=== PATIENT | male | born 1955 | race Caucasian/White ===

== ENCOUNTER → 2020-07-12 14:57 | Outpatient (CLI) | payer MEDICARE, SELFPAY ==
[2020-07-12] MEDS: COVID-19 VACC, Ad26(JANSSEN)/PF 0.5 ML IM (15:13)
== END ==
PROVIDERS: PCP Family Medicine; Visit Provider Internal Medicine
DX: Z23 Encounter for immunization (principal)
CPT/HCPCS: 0031A; 91303

== ENCOUNTER → 2020-10-13 08:43 | Outpatient (CLI) | payer MEDICARE, SELFPAY | PROVIDERS: PCP Family Medicine; Visit Provider Physician Assistant | DX: R10.9 Unspecified abdominal pain (principal) | CPT/HCPCS: 87086 ==

== ENCOUNTER → 2020-10-19 16:17 | Outpatient (CLI) | payer MEDICARE, SELFPAY ==
[2020-10-19 18:07] LABS: Basophils Absolute Auto 100 /uL (0-100); Eosinophils Absolute Auto 200 /uL (0-450); Eosinophils Percent Auto 2.4 % (2-4); Hematocrit 43.7 % (41-53); Lymphocytes Absolute Auto 2900 /uL (1100-4500); Lymphocytes Percent Auto 30.5 % (25-40); Mean Corpuscular HGB Conc 34.3 % (30-36); Mean Corpuscular Hemoglobin 31.9 PG (26-34); Mean Corpuscular Volume 92.9 fL (80-100); Monocytes Absolute Auto 900 /uL (0-900); Monocytes Percent Auto 9.2 % (3-14); Neutrophils Absolute Auto 5400 /uL (1500-7000); Neutrophils Percent Auto 56.9 % (50-75); Red Blood Cell Count 4.71 X10^6/uL (4.5-5.9); Red Cell Distribution Width 13.2 % (11.6-14.8); White Blood Cell Count 9.4 X10^3/uL (4.5-11.0)
[2020-10-19 18:11] LABS: Alanine Aminotransferase 38 IU/L (<50); Albumin 4.7 g/dL (3.5-5.0); Albumin Globulin Ratio 1.5 (1.0-2.8); Alkaline Phosphatase 65 U/L (38-126); Aspartate Aminotransferase 48 IU/L (17-59); BUN Creatinine Ratio 24.3 (6-22); Bilirubin Total 0.7 mg/dL (0.2-1.3); Blood Urea Nitrogen 26 mg/dL (9-20); Calcium 9.8 mg/dL (8.4-10.2); Carbon Dioxide 27 mmol/L (22-32); Chloride 102 mmol/L (98-107); Estimated Glomerular Filt Rate > 60.0 mL/min (>60); Globulin 3.2 g/dL (1.7-4.1); Glucose 84 mg/dL (80-110); HEMOLYSIS < 15 (0-50); Lipase 365 U/L (23-300); Potassium 4.6 mmol/L (3.4-5.1); Sodium 137 mmol/L (137-145); Total Protein 7.9 g/dL (6.3-8.2)
[2020-10-19 18:24] LABS: Add Manual Diff / Slide Review SLIDE REVIEW
[2020-10-19 18:32] LABS: Platelet Estimate Adequate on smear; RBC Morphology Normal Morphology
[2020-10-19 18:42] LABS: TSH w/ Reflex to FT4 2.92 uIU/mL (0.47-4.68)
[2020-10-19 19:36] LABS: Prostate Specific Antigen Scrn 1.79 ng/mL (0.1-4.0)
== END ==
PROVIDERS: PCP Family Medicine; Referring Provider Family Medicine; Visit Provider Family Medicine
DX: R10.31 Right lower quadrant pain (principal); I10 Essential (primary) hypertension; Z12.5 Encounter for screening for malignant neoplasm of prostate
CPT/HCPCS: 80053; 83690; 84443; 85025; G0103

== ENCOUNTER → 2022-03-08 09:45 | Outpatient (CLI) | payer MEDICARE, SELFPAY ==
[2022-03-08 10:59] LABS: Add Manual Diff / Slide Review NO; Basophils Absolute Auto 0 /uL (0-100); Basophils Percent Auto 0.6 % (0-2); Eosinophils Absolute Auto 100 /uL (0-450); Eosinophils Percent Auto 1.4 % (2-4); Hematocrit 42.4 % (41-53); Hemoglobin 14.5 g/dL (13.5-17.5); Lymphocytes Absolute Auto 1600 /uL (1100-4500); Lymphocytes Percent Auto 28.4 % (25-40); Mean Corpuscular HGB Conc 34.1 % (30-36); Mean Corpuscular Hemoglobin 31.3 PG (26-34); Mean Corpuscular Volume 91.8 fL (80-100); Monocytes Absolute Auto 600 /uL (0-900); Monocytes Percent Auto 10.2 % (3-14); Neutrophils Absolute Auto 3200 /uL (1500-7000); Neutrophils Percent Auto 59.4 % (50-75); Platelet Count 174 X10^3/uL (150-400); Red Blood Cell Count 4.62 X10^6/uL (4.5-5.9); White Blood Cell Count 5.5 X10^3/uL (4.5-11.0)
[2022-03-08 11:09] LABS: Alanine Aminotransferase 42 IU/L (<50); Albumin 4.5 g/dL (3.5-5.0); Albumin Globulin Ratio 1.3 (1.0-2.8); Alkaline Phosphatase 82 U/L (38-126); Aspartate Aminotransferase 37 IU/L (17-59); BUN Creatinine Ratio 27.2 (6-22); Bilirubin Total 0.9 mg/dL (0.2-1.3); Blood Urea Nitrogen 25 mg/dL (9-20); Calcium 9.4 mg/dL (8.4-10.2); Carbon Dioxide 28 mmol/L (22-32); Chloride 102 mmol/L (98-107); Cholesterol 197 mg/dL (140-199); Estimated Glomerular Filt Rate > 60 mL/min (>60); Globulin 3.4 g/dL (1.7-4.1); Glucose 99 mg/dL (80-110); HDL Cholesterol 53 mg/dL (40-60); HEMOLYSIS < 15 (0-50); LDL Cholesterol Calculated 128 mg/dL (<100); Potassium 4.8 mmol/L (3.4-5.1); Sodium 137 mmol/L (137-145); Total Protein 7.9 g/dL (6.3-8.2); Triglycerides 80 mg/dL (35-150)
[2022-03-08 11:37] LABS: Prostate Specific Antigen 2.21 ng/mL (0.10-4.00)
== END ==
PROVIDERS: PCP Family Medicine; Referring Provider Family Medicine; Visit Provider Family Medicine
DX: R06.09 Other forms of dyspnea (principal); Z13.220 Encounter for screening for lipoid disorders
CPT/HCPCS: 36415; 80053; 80061; 84153; 85025

== ENCOUNTER 2022-06-02 17:13 | Emergency (ER) | payer MEDICARE, SELFPAY ==
[2022-06-02 17:21] VITALS: BP 160/79; PULSE 70; RESP 16; TEMP 36.2; O2SAT 98; BMI 25.4
--- NOTE | 2022-06-02 17:26 | DI.RAD.S_ITS ---
PROCEDURE: XR FINGER LT MIN 2V INDICATIONS: Dog bite TECHNIQUE: AP hand, 2 views of the 3rd finger(s) acquired. COMPARISON: None. FINDINGS: Bones: No abnormality can be seen of the 3rd finger. No fractures or dislocations are seen elsewhere. No suspicious bony lesions. Soft tissues: Generalized soft tissue irregularity can be seen of the 3rd finger. No radiopaque foreign bodies are seen. IMPRESSION: Soft tissue irregularity, without elsy bony abnormality. No radiopaque foreign bodies are seen. Dictated by: Eliot Mac M.D. on 06/02/2022 at 16:56 Approved by: Eliot Mac M.D. on 06/02/2022 at 16:56
[2022-06-02] MEDS: LIDOCAINE 2% INJ SDV 5ML 5 ML INJ (17:31)
[2022-06-02] MEDS: TET,DIPH,PERTUSS(ACELL),VAC/PF 0.5 ML SYRINGE IM (17:33)
[2022-06-02] MEDS: BACITRACIN OINT 0.9 GM PCKT 2 APPLIC TOP (19:30)
--- NOTE | 2022-06-02 19:42 | ED.WOUNDLAC ---
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 No dog hair lodged into the wound. He does not recall when he had his tetanus vaccine, but believes it was more than 10 years ago. Onset (ago): hour(s) Extremity Location: Left: hand (left mid finger ) Patient tetanus UTD: No Treatments prior to arrival: bandage Related Data Previous Rx's Medication Instructions Recorded amoxicillin 875 mg-potassium 1 tab PO BID #20 tabs 06/02/22 clavulanate 125 mg tablet Allergies Allergy/AdvReac Type Severity Reaction Status Date / Time No Known Drug Allergies Allergy Verified 06/02/22 19:47 Review of Systems <Ada Rosas PA-C - Last Filed: 06/02/22 20:50> Review of Systems Narrative: 12 point review of systems is negative except for those stated above Patient History <Ada Rosas PA-C - Last Filed: 06/02/22 20:50> Medical History Acute low back pain due to trauma Difficulty in urination POST (dyspnea on exertion) Elevated lipase Excessive cerumen in right ear canal Herpes (~2009) Lumbar region somatic dysfunction Pelvic somatic dysfunction Screening for hyperlipidemia Segmental and somatic dysfunction of sacral region Surgical History History of vasectomy (~1995) Family History Mother Stroke Sister Cancer Social History Smoking Status: Never smoker alcohol intake: current Smoking Status: Never smoker alcohol intake frequency: 0-2 drinks per day Alcohol type: hard liquor Substance Use Type: does not use Exam <Ada Rosas PA-C - Last Filed: 06/02/22 20:50> Narrative Exam Narrative: GENERAL: 67 year old patient appears stated age. Well-developed patient, in no acute distress. HEAD: Atraumatic. Normocephalic. EYES: Pupils equal round and reactive. Extraocular motions intact. No scleral icterus. No injection or drainage. ENT: Nose without bleeding, purulent drainage. Throat without erythema, tonsillar hypertrophy or exudate. Airway patent. NECK: Trachea midline. Non tender CARDIOVASCULAR: Regular rate and rhythm without murmurs, gallops, or rubs. RESPIRATORY: Clear to auscultation. Breath sounds equal bilaterally. No wheezes, rales, or rhonchi. GASTROINTESTINAL: Abdomen soft, non-tender, nondistended. EXTREMITIES: No edema or joint tenderness. left hand full range of motion including 3rd digit extension flexion upon exploring laceration, the tendon capsule identified. Tendon seemed to be intact BACK: Nontender without deformity or crepitance. No flank tenderness. NEURO: AOx3.left hand pin prick sensation intact SKIN: No rash or erythema of visible areas left hand palmar aspect 3 d middle Phalanges v-shaped laceration approximately 3 mm in depth, 1.5 cm by 1.5 cm, profusely bleeding Initial Vital Signs Initial Vital Signs: Vital Signs Temperature 97.1 F L 06/02/22 17:21 Pulse Rate 70 06/02/22 17:21 Respiratory Rate 16 06/02/22 17:21 Blood Pressure 160/79 H 06/02/22 17:21 Pulse Oximetry 98 06/02/22 17:21 Oxygen Delivery Method 06/02/22 17:21 <Jaswant Oden DO - Last Filed: 06/03/22 04:23> Initial Vital Signs Initial Vital Signs: Vital Signs Temperature 97.1 F L 06/02/22 17:21 Pulse Rate 70 06/02/22 17:21 Respiratory Rate 16 06/02/22 17:21 Blood Pressure 160/79 H 06/02/22 17:21 Pulse Oximetry 98 06/02/22 17:21 Oxygen Delivery Method 06/02/22 17:21 Procedures <Ada Rosas PA-C - Last Filed: 06/02/22 20:50> Laceration Repair Laceration 1: Site: hand ( Left hand 3rd middle phalanx) Size (cm): 3 Description: irregular ( v-shaped) and clean Local Anesthetic: lidocaine 2% ( without epinephrine) Amount of anesthesia used (mL): 2 Skin layer closed with: nylon Skin layer suture size: 4-0 Number of sutures: 6 Technique: simple, interrupted Course <Ada Rosas PA-C - Last Filed: 06/02/22 20:50> Orders Ordered: Discontinued Medications Bacitracin (Bacitracin Oint 0.9 Gm Pckt) 2 applic TOP NOW ONE Stop: 06/02/22 19:23 Last Admin: 06/02/22 19:30 Dose: 2 applic Documented By: AT Diphtheria/Tetanus/Acell Pertussis (Tet,Diph,Pertuss(Acell),Vac/Pf 0.5 Ml Syringe) 0.5 ml IM .ONCE ONE Stop: 06/02/22 17:27 Last Admin: 06/02/22 17:33 Dose: 0.5 ml Documented By: CHAPO Lidocaine HCl (Lidocaine 2% Inj Sdv 5ml) 5 ml INJ INTRA-OP ONE Stop: 06/02/22 17:31 Last Admin: 06/02/22 17:31 Dose: 5 ml Documented By: CHAPO Vital Signs Vital signs: Vital Signs - 8 hr 06/02/22 17:21 Temperature 97.1 F L Pulse Rate 70 Respiratory Rate 16 Blood Pressure 160/79 H Pulse Oximetry 98 Oxygen Delivery Method Room Air <Jaswant Oden DO - Last Filed: 06/03/22 04:23> Orders Ordered: Discontinued Medications Bacitracin (Bacitracin Oint 0.9 Gm Pckt) 2 applic TOP NOW ONE Stop: 06/02/22 19:23 Last Admin: 06/02/22 19:30 Dose: 2 applic Documented By: AT Diphtheria/Tetanus/Acell Pertussis (Tet,Diph,Pertuss(Acell),Vac/Pf 0.5 Ml Syringe) 0.5 ml IM .ONCE ONE Stop: 06/02/22 17:27 Last Admin: 06/02/22 17:33 Dose: 0.5 ml Documented By: CHAPO Lidocaine HCl (Lidocaine 2% Inj Sdv 5ml) 5 ml INJ INTRA-OP ONE Stop: 06/02/22 17:31 Last Admin: 06/02/22 17:31 Dose: 5 ml Documented By: CHAPO Vital Signs Vital signs: Vital Signs - 8 hr 06/02/22 17:21 Temperature 97.1 F L Pulse Rate 70 Respiratory Rate 16 Blood Pressure 160/79 H Pulse Oximetry 98 Oxygen Delivery Method Room Air MDM - Wound/Laceration <Ada Rosas PA-C - Last Filed: 06/02/22 20:50> Imaging Data left hand xray : Radiologist's Impression: ? IMPRESSION:? Soft tissue irregularity, without elsy bony abnormality. ? No radiopaque foreign bodies are seen. ? MDM Narrative Medical decision making narrative: discussed with patient diagnosis and treatment. He sustained laceration of the middle left 3rd finger, requiring repair. The tendon does not seem to be affected however patient does need follow-up with ortho to assure that tendon is intact. Imaging reviewed: yes no structural abnormality noted Consultations: will refer to ortho Patient's symptoms improved over duration of stay with above-stated therapies, laceration repair. Findings and discharge diagnosis discussed with patient/followed by verbalization of understanding Return precautions discussed with patient whom verbalize understanding of diagnosis and plan Discharge Plan Departure Patient Disposition: Home Clinical Impression: Laceration of left middle finger without foreign body Instructions: How to Care for a Laceration After Repair, DI for Laceration Repair Activity Restrictions/Additional Instructions: *You have been diagnosed with laceration left index finger *What to do: *Please continue to take your regular medications as directed. No new medications given you may takeover the counter Tylenol or ibuprofen for pain 6 sutures were placed, please keep wound clean and dry, protect from moisture, may use dry dressing and wear finger splint to protect repaired laceration from bending, injuring after 10 days sutures should be removed - in PCP office, walk in clinic or ED We plan to refer to ortho for tendon assessment on a finger given the depth and extent of laceration *Return to Emergency Department if you should have any new, worsening or concerning symptoms, such as [fever greater than 101 F, shaking chills, worsening pain, persistent vomiting or other bothersome symptoms] Prescriptions: New amoxicillin-pot clavulanate 875-125 mg tablet 1 tab PO BID Qty: 20 0RF Referrals: Chris Tillman MD [Physician] - (patient with deep laceration of left 3 d digit , possibly at the capsule level, please assess the tendon function after repair is done ) Davdi Morris DO [Primary Care Provider] - Stand Alone Forms: Patient Portal/API <Jaswant Oden DO - Last Filed: 06/03/22 04:23> Cosign ED Attending Poppyature Attestation: I was immediately available in the department for consultation. Documentation has been reviewed. I agree with assessment and plan.
== END 2022-06-02 19:59 | disposition home or self-care (01) ==
PROVIDERS: Emergency Provider Physician Assistant Medical; PCP Family Medicine
DX: S61.327A Laceration with foreign body of left little finger with damage to nail, initial encounter (principal); W26.9XXA Contact with unspecified sharp object(s), initial encounter; Z23 Encounter for immunization
CPT/HCPCS: 12002; 73140; 90471; 99283; 99284; 90715

== ENCOUNTER → 2022-09-18 16:54 | Outpatient (CLI) | payer MEDICARE, SELFPAY | PROVIDERS: PCP Family Medicine; Visit Provider Nurse Practitioner Family | DX: J02.9 Acute pharyngitis, unspecified (principal) | CPT/HCPCS: 87070 ==

== ENCOUNTER 2022-11-28 07:00 | Day surgery (SDC) | payer MEDICARE, SELFPAY ==
[2022-11-28 07:18] VITALS: BP 122/67; PULSE 71; RESP 16; TEMP 35.9; O2SAT 99
[2022-11-28] MEDS: LACTATED RINGERS 1,000 ML 150 ML IV (07:30)
--- NOTE | 2022-11-28 08:07 | P.HP_ITS ---
History of Present Illness History of Present Illness Date Patient Seen: 11/28/22 Time Patient Seen: 08:07 Chief complaint: Screening Colonoscopy Narrative: Lexx is a 67-year-old man who is here for colonoscopy. His last 1 was over 10 years ago. He has no first-degree relatives with colon cancer. [facility] Medical History Acute low back pain due to trauma Difficulty in urination POST (dyspnea on exertion) Elevated lipase Excessive cerumen in right ear canal Herpes (~2009) Lumbar region somatic dysfunction Pelvic somatic dysfunction Screening for hyperlipidemia Segmental and somatic dysfunction of sacral region Surgical History History of vasectomy (~1995) Family History Mother Stroke Sister Cancer Social History household members: significant other Smoking Status: Never smoker alcohol intake: current Meds Home Medications and Allergies Allergies Allergy/AdvReac Type Severity Reaction Status Date / Time No Known Drug Allergies Allergy Verified 09/18/22 16:41 Exam Vital Signs (past 8 hours): - 11/28/22 07:18 Temperature 96.6 F L Pulse Rate 71 Respiratory Rate 16 Blood Pressure 122/67 Pulse Oximetry 99 Oxygen Delivery Method Room Air Oxygen Delivery Method Room Air Const General: healthy appearing Assessment & Plan Assessment and plan (1) Colon cancer screening: Status: Acute Plan Lexx is a 67-year-old man who is here for colonoscopy for colon cancer screening. We reviewed the risks and benefits and he would like to proceed.
[2022-11-28 08:34] VITALS: BP 91/55; PULSE 69; RESP 14; TEMP 36.5; O2SAT 94
--- NOTE | 2022-11-28 08:34 | P.OP.COLON_ITS ---
Operative Date/Time/Diagnoses Date of procedure: 11/28/22 Time of procedure: 08:34 Pre-op diagnosis: Colon cancer screening Post-op diagnosis: same Procedure & Clinicians Study performed: Colonoscopy Same procedure as scheduled: Yes Surgeon: Roberto Palma Procedure Notes Procedure in detail: Surgeon: Roberto Palma MD Anesthesia: Yifan Diaz CRNA Procedure: The patient was brought to the endoscopy suite, placed in left lateral decubitus position. The patient was connected to monitoring devices. A time-out was performed. Sedation was administered. Once the patient was adequately sedated, a digital rectal exam was performed. The prostate was mildly enlarged. The scope was then inserted and advanced to the cecum where the appendiceal orifice was identified and photographed. The scope was then slowly withdrawn over greater than 6 minutes. The mucosa was thoroughly inspec erlinda. No polyps were found. The scope was retroflexed in the rectum. No abnormalities were seen. The scope was straightened and removed. The patient was awakened and brought to recovery. Scope withdrawal time: 9 minutes Sedation time: 15 minutes EBL: 0 Findings: Normal colon Post-procedure Recommendations: Colonoscopy in 10 years Disposition: PACU
[2022-11-28 08:39] VITALS: BP 90/57; PULSE 65; RESP 13; O2SAT 94
[2022-11-28 08:44] VITALS: BP 98/61; PULSE 63; RESP 14; O2SAT 94
[2022-11-28 08:51] VITALS: BP 114/75; PULSE 64; RESP 14; O2SAT 96
== END 2022-11-28 09:10 | disposition home or self-care (01) ==
PROVIDERS: PCP Family Medicine; Referring Provider Surgery; Visit Provider Surgery
PROC: 0DJD8ZZ Inspection of Lower Intestinal Tract, Via Natural or Artificial Opening Endoscopic (ICD-10-PCS; CPT 45378; principal; 2022-11-28 08:15)
DX: Z12.11 Encounter for screening for malignant neoplasm of colon (principal)
CPT/HCPCS: G0121; J2704

== ENCOUNTER → 2023-08-06 15:34 | Outpatient (CLI) | payer MEDICARE, SELFPAY | PROVIDERS: PCP Family Medicine; Visit Provider Physician Assistant | DX: R35.0 Frequency of micturition (principal); R39.198 Other difficulties with micturition | CPT/HCPCS: 87086 ==

== ENCOUNTER → 2023-08-06 15:57 | Outpatient (CLI) | payer MEDICARE, SELFPAY ==
[2023-08-06 17:29] LABS: Alanine Aminotransferase 44 IU/L (<50); Albumin 4.4 g/dL (3.5-5.0); Albumin Globulin Ratio 1.4 (1.0-2.8); Alkaline Phosphatase 63 U/L (38-126); Aspartate Aminotransferase 39 IU/L (17-59); BUN Creatinine Ratio 26.6 (6-22); Bilirubin Total 0.8 mg/dL (0.2-1.3); Blood Urea Nitrogen 25 mg/dL (9-20); Calcium 9.3 mg/dL (8.4-10.2); Carbon Dioxide 28 mmol/L (22-32); Chloride 106 mmol/L (98-107); Estimated Glomerular Filt Rate > 60 mL/min (>60); Globulin 3.2 g/dL (1.7-4.1); Glucose 115 mg/dL (80-110); HEMOLYSIS < 15 (0-50); Potassium 4.2 mmol/L (3.4-5.1); Sodium 139 mmol/L (137-145); Total Protein 7.6 g/dL (6.3-8.2)
[2023-08-06 17:58] LABS: Prostate Specific Antigen Scrn 2.16 ng/mL (0.1-4.0)
== END ==
PROVIDERS: PCP Family Medicine; Referring Provider Physician Assistant; Visit Provider Physician Assistant
DX: Z12.5 Encounter for screening for malignant neoplasm of prostate (principal); R39.198 Other difficulties with micturition; R35.0 Frequency of micturition
CPT/HCPCS: 36415; 80053; 87086; G0103

== ENCOUNTER → 2024-09-02 07:08 | Outpatient (CLI) | payer MEDICARE, SELFPAY ==
[2024-09-02 07:36] LABS: Add Manual Diff / Slide Review NO; Basophils Absolute Auto 0 /uL (0-100); Basophils Percent Auto 0.6 % (0-2); Eosinophils Absolute Auto 200 /uL (0-450); Eosinophils Percent Auto 2.5 % (2-4); Hemoglobin 14.2 g/dL (13.5-17.5); Lymphocytes Absolute Auto 1600 /uL (1100-4500); Lymphocytes Percent Auto 26.2 % (25-40); Mean Corpuscular HGB Conc 34.6 % (30-36); Mean Corpuscular Hemoglobin 31.4 PG (26-34); Mean Corpuscular Volume 90.6 fL (80-100); Monocytes Absolute Auto 600 /uL (0-900); Monocytes Percent Auto 10.2 % (3-14); Neutrophils Absolute Auto 3800 /uL (1500-7000); Neutrophils Percent Auto 60.5 % (50-75); Platelet Count 250 X10^3/uL (150-400); Red Blood Cell Count 4.53 X10^6/uL (4.5-5.9); Red Cell Distribution Width 13.4 % (11.6-14.8); White Blood Cell Count 6.3 X10^3/uL (4.5-11.0)
[2024-09-02 07:55] LABS: Alanine Aminotransferase 42 IU/L (<50); Albumin 4.3 g/dL (3.5-5.0); Albumin Globulin Ratio 1.6 (1.0-2.8); Alkaline Phosphatase 68 U/L (38-126); Aspartate Aminotransferase 36 IU/L (17-59); Bilirubin Total 1.2 mg/dL (0.2-1.3); Blood Urea Nitrogen 25 mg/dL (9-20); Calcium 9.4 mg/dL (8.4-10.2); Carbon Dioxide 25 mmol/L (22-32); Chloride 106 mmol/L (98-107); Cholesterol 202 mg/dL (140-199); Estimated Glomerular Filt Rate > 60 mL/min (>60); Globulin 2.7 g/dL (1.7-4.1); Glucose 100 mg/dL (70-99); HDL Cholesterol 59 mg/dL (40-60); HEMOLYSIS < 15 (0-50); LDL Cholesterol Calculated 129 mg/dL (<100); Potassium 4.6 mmol/L (3.4-5.1); Sodium 138 mmol/L (137-145); Triglycerides 72 mg/dL (35-150)
[2024-09-02 08:24] LABS: Prostate Specific Antigen Scrn 2.24 ng/mL (0.1-4.0)
== END ==
PROVIDERS: PCP Family Medicine; Referring Provider Family Medicine; Visit Provider Family Medicine
DX: Z12.5 Encounter for screening for malignant neoplasm of prostate (principal); E78.00 Pure hypercholesterolemia, unspecified
CPT/HCPCS: 36415; 80053; 80061; 85025; G0103